=== PATIENT | male | born 1945 | race African-American/Black ===

== ENCOUNTER 2017-11-23 01:13 | Emergency (ER) | payer OTHER ==
[~2017-11-23] VITALS: Ht 154.9 cm; Wt 83.9 kg
[~2017-11-23 01:13] MED LIST: COLACE100 MG PO; HYDROCODON-ACE1 EACH PO; LEVOTHROID175 MCG PO; LIPITOR 10 MG10 M1 PO; LIPITOR20 MG PO; MEDROLDOSEPACK PO; NEXIUM 40 MG CA40 M1 PO; NEXIUM10 MG PO; NORCO 10-325 T1 EACH PO; NORVASC 2.5 MG2.5 M1 PO; NORVASC 5 MG TAB5 MG PO; PROVENTIL HFA6.7 G1 INH; ROBAXIN 750 MG750 M1 PO; SYMBICORT80 MCG/4.1 INH; SYNTHROID300 MCG PO; TAMSULOSIN HCL0.4 M1 PO; ZPAK PO
[2017-11-23] MEDS ORDERED: ZANTAC 150MG T150 MG PO (02:00)
[2017-11-23 02:46] VITALS: BP 137/79
== END 2017-11-23 02:45 | disposition home or self-care (01) ==
LOC: ER 01:13
DX: S01.81XA Laceration without foreign body of other part of head, initial encounter (principal); F10.129 Alcohol abuse with intoxication, unspecified; S09.90XA Unspecified injury of head, initial encounter; K21.9 Gastro-esophageal reflux disease without esophagitis; E03.9 Hypothyroidism, unspecified; I10 Essential (primary) hypertension; E78.00 Pure hypercholesterolemia, unspecified; Z90.49 Acquired absence of other specified parts of digestive tract; F17.210 Nicotine dependence, cigarettes, uncomplicated; W10.9XXA Fall (on) (from) unspecified stairs and steps, initial encounter; Y93.89 Activity, other specified; Y92.009 Unspecified place in unspecified non-institutional (private) residence as the place of occurrence of the external cause; Y99.8 Other external cause status